=== PATIENT | female | born 1950 | race Hispanic/Latino ===

== ENCOUNTER → 2025-02-25 12:15 | Outpatient (REF) | payer MEDICARE, OTHER, SELFPAY | LOC: SDSPAT 12:15 | PROVIDERS: ATTENDING PHYSICIAN Obstetrics & Gynecology Gynecologic Oncology | DX: C54.1 Malignant neoplasm of endometrium (principal) | CPT/HCPCS: 36415; 86850; 86900; 86901 ==

== ENCOUNTER 2025-03-08 06:22 | Day surgery (SDC) | payer MEDICARE, OTHER, SELFPAY ==
[2025-02-25 13:27] VITALS: BMI 40.9
--- NOTE | 2025-03-07 06:45 | W.CON.GYNONC ---
Chief Complaint
-
Endometrial ca
History of Present Illness
74�year�old woman presenting for new diagnosis of endometrial cancer referred by Dr. Saldana. she presented to [facility]
with postmenopausal bleeding initially.
Ultrasound of pelvis October 24, 2024 at [facility] shows uterus 10 x 5 x 6 cm, endometrial mass 2.3 cm there
is no abnormal vascularity. Right and left ovaries are not seen.
Pap smear performed November 23, 2024 was cytology negative high risk HPV negative
This patient did undergo D&C, January 14, 2025 which reveals grade 1 endometrioid adenocarcinoma.there is loss of MLH1, PMS2
Past medical history significant for asthma, morbid obesity, depression, hypertension, prediabetes, gastroesophageal reflux as well
as arthritis, vitamin D insufficiency, memory changes.
Prior surgeries include tubal ligation
Family history significant for Alzheimer disease in mother, COPD in her sister, heart disease in her father
Allergies NKDA
patient is single, has 9 children
Social history denies tobacco use, denies alcohol abuse,from ID, lives with daughter and grand child
Medical History
Allergies
Allergies reflect when allergies were last updated in [facility].
No Known Allergies Allergy (Unverified 03/01/25 12:53)
Physical Exam
Physical Exam
External�normal�labia,�urethra,�anus. Vagina:�Normal�mucosa.� Cervix:�normal�appearance,�no�discharge.� Uterus:�normal�size.� Adnexa:�No�pelvic�mass.� RVE:�no�masses�or�nodularity
General:�Well�developed,�well�nourished�patient.�In�no�acute�distress. Neck:�No�thyromegaly.�No�cervical�lymphadenopathy. Lungs:�Clear�to�auscultation.�Good�air�movement�bilaterally. Cardiac:�Regular�rate.�Regular�rhythm.�No�murmurs�appreciated.
Right�Breast:�No�masses�or�dimpling.�No�nipple�discharge. Left�Breast:�No�masses�or�dimpling.�No�nipple�discharge. Abdomen:�Abdomen�is�soft.�Non�tender�to�palpation.�Non�distended. Extremities:�No�edema.
Hematologic/Lymphatic:�No�palpable�lymphadenopathy. Musculoskeletal:�Normal�range�of�motion.�Strength�and�Tone�are�normal.
Impression / Plan
-
I�spoke�with�the�patient�and�her�daughter�via�a�stereotyper apprentice�on�telephone.�I�explained�to�her�diagnosis�of�endometrial�cancer�etiology
and�correlation�to�obesity,�diabetes�hypertension,�we�discussed�presentation�and�management.�She�appears�to�have�low�grade
early�stage�endometrial�cancer�at�least�by�clinical�exam.�I�will�go�ahead�and�obtain�labs,�a�baseline�CT�chest�abdomen�pelvis.�She
appears�to�have�low�level�of�activity�and�I�recommended�that�she�increases�her�ambulation�to�approximately�30�minutes/day,�she
needs�to�see�her�primary�care�physician�for�a�preoperative�evaluation.�My�recommendation�is�to�proceed�with�surgery,�to�include
robotic�assisted�total�laparoscopic�hysterectomy�bilateral�salpingo�oophorectomy,�injection�of�cervix�with�ICG�dye,�mapping�at
identification�and�excision�of�sentinel�lymph�nodes.�Questions�were�answered.�Risk�of�surgery�including�infection,�bleeding,�injury�to
adjacent�organs,�DVT�pulmonary�embolus,�cardiovascular�complications�were�discussed�and�reviewed.�Surgery�will�be�scheduled�in about�3�to�4�weeks.�She�understands�that�she�will�see�me�2�weeks�after�surgery�to�discuss�postoperative�adjuvant�treatment
recommendation�if�necessary.�Surgery�will�be�scheduled�at[facility].
[2025-03-08] VITALS (20 sets, daily range): BP systolic 124–159; BP diastolic 76–98; BMI 40.9
[2025-03-08] MEDS: TYLENOL 1000 MG PO (11:25)
[2025-03-08] MEDS: NEURONTIN 300 MG PO (11:25)
[2025-03-08] MEDS: CELEBREX 200 MG PO (11:25)
[2025-03-08] MEDS: NORMOSOL-R/PLASMALYTE-A 1000 IV (11:26)
[2025-03-08] MEDS: HEPARIN 5000 UNITS SC (11:37)
[2025-03-08] MEDS: ZOFRAN 4 MG IV (16:05)
--- NOTE | 2025-03-08 16:08 | OR.RPT ---
Operative Report
Operative Report
Preoperative diagnosis: Endometrial cancer
Postoperative diagnosis: Same
Procedure:
Robotic assisted total laparoscopic hysterectomy, Bilateral salpingo-oophorectomy with pelvic washing
Injection of cervix with ICG dye, bilateral, for mapping and identification of sentinel lymph node
Robotic assisted laparoscopic bilateral pelvic lymphadenectomy including sentinel LN
Tap block
Surgeon: Monty Gaytan MD
Assist: Joseph Graham PA-C
EBL: 150 cc
Anesthesia: General Endotracheal intubation
Complication: None
Specimen: Uterus and cervix with left tube and ovary, pelvic washings, Right and left pelvic lymph nodes, left obturator sentinel lymph node
Findings: There was no implants of tumor involving pelvic peritoneum or upper abdomen right and left diaphragm right and left lobe of liver right and left paracolic gutter and omentum was unremarkable. Uterus was otherwise unremarkable, both
ovaries are benign appearing, retroperitoneal lymph nodes were without any enlargement. The visualized portions of small and large bowel were within normal limits
Procedure in detail: This patient was taken to the operating room and placed in supine position. General anesthesia was administered and she was intubated without any difficulty. Arms were wrapped with foam and laid along the patient's sides and
neck and shoulder were appropriately protected. She was placed in lithotomy position using yellowfin stirrups and prepped on the abdomen perineum and vagina. The patient was draped. Timeout procedure was carried out, she received 2 g of Ancef and
500 mg of Flagyl. Doherty catheter was placed under sterile conditions in the bladder. Using Dorsey retractor the cervix was identified and grasped on the anterior lip, cervical canal was gently dilated. ICG dye was injected in the cervix at
approximately 3 and 9:00 superficially at 5 mm and deep at 10 mm for a total of 4 cc. Uterine manipulator zipper repairer type with 3 cm ADRIÁN ring was placed in the endometrial cavity and vaginal cuff occluder was insufflated. Attention was turned
abdominally. Veress needle was inserted just below the left subcostal margin and pneumoperitoneum was created with CO2 gas up to pressure of 15 mmHg. 8 mm XI robotic port was inserted approximately 22 cm cephalad to symphysis pubis into the
peritoneal cavity and then under direct visualization 8 mm XI robotic ports were inserted right and left upper abdomen and right and left lateral abdomen. Tap block was performed using combination of 30 cc 0.2% ropivacaine admixed with 30 cc
sterile saline and 1 mg of Decadron injected equally under direct visualization 2 fingerbreadths below right and left subcostal margins as well as right and left lateral mid abdomen.
Following this survey of the abdomen was performed with the findings noted above. Patient was placed in 28 degree Trendelenburg and robotic system was docked. Washings were collected in the pelvis and submitted to pathology. Right and left
round ligaments were sealed and divided anterior and posterior leaves of the broad ligament resected open in both infundibulopelvic ligaments were isolated and a window was created between them and the ureters in the retroperitoneum. IP ligaments
were sealed 3 times and tubes and ovaries are left attached to uterus. we used the near infrared firefly system and examined the retroperitoneum after development of paravesical and pararectal spaces. The lymphatic channels drain into left
obturator spaces first, right sided lymphatics were very hard to follow due to excess adipose tissue in retroperitoneum.
Bladder flap was sharply developed and advanced below the cervicovaginal junction. Uterine arteries were sealed after they were skeletonized and divided circumferential incision was made over the ADRIÁN ring and uterosacral ligaments were transected
as part of this. Specimen of uterus and cervix with both tube and ovary was removed through the vagina.
Following this, I went ahead and performed bilateral pelvic lymphadenectomy removing the entire lymphatic tissue between bifurcation of common iliac vessels down to the level of the circumflex iliac artery and vein, additional lymph nodes along the
operative fossa was completely removed anterior to the obturator nerve. The medial boundary of the dissection was ureter and lateral boundary was genitofemoral nerve. We used sponge to establish there was good hemostasis. We did not injure ureter
and nerves blood vessels. Sponges as well as packets of lymph node including right and left pelvic lymph nodes were removed through the vagina. I then sprayed 4 ml Tiseel over the operative spaces.
The vaginal apex was closed with a 0 Vicryl suture ligature in a [id number] fashion involving uterosacral ligaments on both sides and then a V-Loc suture was used to close the vagina starting from right to the left and then back to the right
side in 2 layers. All operative sites were examined and excellent hemostasis was present the released the pneumoperitoneum and removed the ports and undocked the robotic system, we did not close any of the fascia involving incisions. We closed the
skin incisions with 4-0 Monocryl in a subcuticular fashion. Vaginal canal was examined and there was no evidence of lacerations or bleeding Doherty catheter was removed. Patient was awakened and returned back to recovery room stable awake and
extubated condition counts of labs instruments and needle was correct x 2. I was present and scrubbed for entire procedure as dictated above.
Disposition: To PACU, stable awake and extubated
--- NOTE | 2025-03-08 17:39 | CON.HOSP ---
Addendum entered and electronically signed by Parish Wu MD 03/08/25 18:39:
Seen and examined by me independently in collaboration with the nurse practitioner Sue.
Past medical history/social history/medication/allergies reviewed.
Lab data and imaging data reviewed.
Consult from Program/Music Director onc Dr Ward for post op hypoxia.
Jordanian speaking but family at bedside helping with translation and also her WATCH ELECTRICIAN speaks ukrainian and able to translate.
Postop patient sedated initially hands he was hypoxic. She is now much more awake but she has constant nausea and ongoing emesis and with that she is feeling dizzy and lightheaded.
Denies any shortness of breath or chest pain. No prior history of primary lung problems or heart failure. She is requiring 2 L of oxygen saturating well at 97%. No acute respiratory distress evident. Hard to examine. Morbid obesity. Not clear
if I am hearing Rales on the right lower lobe. With constant nausea and vomiting rule out any aspirational event. Chest x-ray requested. EKG shows a sinus rhythm with no acute ST-T changes. No JVD or lower extremity edema. No murmur noted.
In view of emesis will hold oral diet tonight. Okay for ice chips and sips of clears. Continue with antiemetics. Start on IV fluids.
Patient does have persistent postop nausea with some surgical abdominal pain. She apparently has a history of GERD per family. Treat symptomatically for now. Add PPI.
She has a history of hypertension of note continue with lisinopril adding tomorrow. Creatinine 0.08.
History of prediabetes mellitus type II. Check hemoglobin A1c and leave her on sliding scale insulin for now
Thanks for consultation. Will continue to follow with you.
Original Note:
Family Physician
-
Family Physician: ALLEY PRYOR
Chief Complaint
-
Grade 1 endometrioid adenocarcinoma
History of Present Illness
74-year-old female new diagnosis of endometrial cancer referred by Dr. Saldana when she presented to [facility] with postmenopausal bleeding. She had ultrasound of the pelvis October 24, 2024 at [facility] showing uterus 10
x 5 x 6 cm, endometrial mass 2.3 cm and right and left ovaries were not seen. She had Pap performed November 23, 2024 cytology negative , high risk HPV negative. She underwent a D&C January 14, 2025 which revealed grade 1 endometrioid adenocarcinoma.
Loss of MLH1, PMS2. Today she is status post robotic assisted total laparoscopic hysterectomy bilateral same pain go oophorectomy with pelvic washing
She is a Jordanian-speaking female only she is able to follow directions she denies any current pain she is very sedated requiring oxygen post fentanyl, Dilaudid and Versed however she will wake up and follow commands. She currently has not voided
yet postop we will monitor with bladder scans. Per nurse she took her lisinopril 30 mg yesterday. There is no history of hemoglobin A1c despite reported history of prediabetes we will add onto current labs just ordered.
Other past medical history includes asthma, depression, HTN, prediabetes, GERD, vitamin D deficiency, memory impairment, class III obesity�BMI 40.9, arthritis. Pt had vomiting while in PACU and is complaining Of dizziness with persistent nausea we
will make patient n.p.o. increase IV fluids and give prochlorperazine patient has as needed Zofran as needed we will decrease diet to n.p.o. except meds and ice chips
Medical History
Past Medical History
Past Medical History: Reports Other
Additional Past Medical History:
October 24, 2024 at [facility] showing uterus 10 x 5 x 6 cm, endometrial mass 2.3 cm and right and left ovaries were not see
Pap performed November 23, 2024 cytology negative , high risk HPV negative.
D&C January 14, 2025 which revealed Grade 1 Endometrioid Adenocarcinoma. Loss of MLH1, PMS2.
Memory impairment
Asthma
Depression
HTN
Prediabetes
GERD
Vitamin D deficiency
class III obesity�BMI 40.9
arthritis
Past Surgical History: Reports Other
Additional Past Surgical History:
Tubal ligation
Pap performed November 23, 2024 cytology negative , high risk HPV negative.
D&C January 14, 2025 which revealed Grade 1 Endometrioid Adenocarcinoma. Loss of MLH1, PMS2.
03/08/2025 status post robotic assisted total laparoscopic hysterectomy, bilateral salpingo-� oophrectomy with pelvic washing
Injection of cervix with ICG dye bilateral, for mapping and identification of sentinel lymph node
Robotic assisted laparoscopic bilateral pelvic lymphadenectomy including sentinel LN
Tap block
Social History
Tobacco: Non-smoker
Alcohol: None
Drug: None
Personal: Single
Living: With Family (Daughter and grandchild)
Employment: Retired
Family History
Family History: Other (Mother Alzheimer's, COPD Sister, CAD Father)
Allergies / Home Medications
Allergies reflects when Allergies were last updated in [employer].
Home Medications with original date entered in [employer]
Allergy/Medication List:
Allergies
Allergy/AdvReac Type Severity Reaction Status Date / Time
No Known Allergies Allergy Verified 03/08/25 11:03
Home Medications
acetaminophen 325 mg tablet (Tylenol) 650 mg PO Q6H PRN pain 03/01/25
lisinopril 30 mg tablet 30 mg PO DAILY 03/01/25
Review of Systems
-
History Source: Patient (Jordanian speaking female nurse speaks Jordanian), Physician (Record) and Other (Nurse at bedside)
A 12 point Review of Systems was completed except as noted: Yes
Constitutional: Denies Fever or Chills
EENT: Denies Sore Throat or Runny Nose
Respiratory: Denies Cough or Trouble Breathing
Cardiac: Denies Chest Pain, Palpitations or Syncope
Abdomen/GI: Denies Abdominal Pain, Nausea, Vomiting, Diarrhea, Constipated or Bloody Stools
: Denies Dysuria, Frequency, Flank Pain, Incontinence or Difficulty Voiding
Musculoskeletal: Denies Joint Pain or Edema
Skin: Denies Itching or Rash
Neurological: Denies Dizzy or Headache
Endocrine: Reports No Symptoms
Hematologic/Lymphatic: Reports No Symptoms
Psych: Reports Calm
Physical Exam
Vital Signs
Vital Signs
Temp Pulse Resp BP Pulse Ox
97.2 F 70 8 126/83 98
03/08/25 14:41 03/08/25 16:45 03/08/25 16:45 03/08/25 16:45 03/08/25 16:45
Physical Exam
General: Comfortable and Other (Patient seen in PACU is sedated on oxygen will open eyes to name called is able to answer review of systems in [place]ian her [place] language)
HEENT: Normocephalic, Oxygen (2 L nasal cannula infusing) and PERRLA
Respiratory: Clear; Negative Wheezes, Rales or Rhonchi
Cardiac: S1/S2 and Regular Rhythm; Negative Tachycardia, Murmur, Rub or Peripheral Edema
GI: Soft, Normal Bowel Sounds and Other (Multiple laparoscopic sites intact with Dermabond in place)
Rectal: Deferred by Provider
Musculoskeletal: No Clubbing, No Cyanosis and No Edema
Skin: Warm and Dry; Negative Rash
Neuro: No Motor Deficits, Sedated (Postsurgery) and Other (Patient seen in PACU is sedated on oxygen will open eyes to name called is able to answer review of systems in [place]ian her [place] language); Negative Slurred Speech, Facial Droop or Tremors
Psych: Calm
Data Reviewed
-
Lab Data: Labs Reviewed
Impression / Plan
-
Impression/plan:
Medical consultation
#Grade 1 endometrioid adenocarcinoma
#03/08/2025 status post robotic assisted total laparoscopic hysterectomy, bilateral salpingo-� oophrectomy with pelvic washing
Injection of cervix with ICG dye bilateral, for mapping and identification of sentinel lymph node
Robotic assisted laparoscopic bilateral pelvic lymphadenectomy including sentinel LN
Tap block
#Increased sedation post surgery status post fentanyl, Dilaudid, Versed requiring oxygen 2 L
Patient was given preop Ancef, gabapentin 300 mg, Celebrex 200 mg
-Being followed by Dr. Gaytan
- Pain control Tylenol alternating with Motrin
- Zofran Iv
-Iv prochlorperazine
-IV NSS 80 cc an hour x 1 L per attending
NPO except meds and ice chips due to dizziness vomiting
-Monitor voiding -must void before discharge will check with bladder scan
-Supplemental O2 until able to maintain sats greater than 92%, wean as tolerated
- Consult PT/OT/case management
Labs pending on admission
- Per Dr. Gaytan DC notes: May shower after 24 hours no tubs bath or swimming until approved by him
Clean laparoscopic incisions with warm soap and water
Continue home medication
No driving x 1 week, no lifting more than 10 pounds for 2 weeks
- Encourage ambulation walking 10 minutes 3-4 times a day
- Call the office to make an appointment in 2 weeks
#Memory impairment? Reported per history
Patient is Jordanian-speaking only she is able to follow commands and answer to name however I did not use [employer] to test orientation x 3 due to sedation and patient is in recovery room
#HTN
BP 126/83
- Lisinopril 30 mg daily
#Asthma-no acute exacerbation
#Depression hx
No reported meds
Prediabetes
Will check HgbA1c
#GERD
Will add IV Protonix now and daily
Other PMH:
Vitamin D deficiency-no reported meds
Arthritis no reported meds
#class III obesity�BMI 40.9
Affects all aspects of care
Weight loss recommended
DVT prophylaxis
Subcu Lovenox
Full code
[2025-03-08 17:47] LABS: % Basophils 0.2 % (0-2); % Eosinophils 0.1 % (0-6); % Immature Granulocytes 0.4 % (0-0.5); % Lymphocytes 7.2 % (20.5-51.1); % Neutrophils 91.1 % (42.2-75.2); Absolute Immature Granulocytes 0.1 10^3/uL (0-0.05); Absolute Lymphocytes 0.8 10^3/uL (1.2-3.4); Absolute Monocytes 0.1 10^3/uL (0.1-0.6); Absolute Neutrophils 10.4 10^3/uL (1.4-6.5); Hematocrit 35.9 % (37.0-47.0); Hemoglobin 11.7 g/dL (12.0-16.0); Mean Corp Hgb Conc. 32.6 g/dL (33.0-37.0); Mean Corpuscular Hgb 30.2 pg (27.0-31.0); Mean Corpuscular Volume 92.5 fL (81.0-99.0); Nucleated Red Blood Cells % 0 %; Platelet Count 157 10^3/uL (130-400); Red Blood Cell Count 3.88 10^6/uL (4.20-5.40); Red Cell Dist. Width 14.6 % (11.5-14.5); White Blood Cell Count 11.4 10^3/uL (4.8-10.8)
[2025-03-08 17:59] LABS: Blood Urea Nitrogen 15 mg/dl (7-17); Calcium 8.3 mg/dl (8.4-10.2); Carbon Dioxide 26 mmol/L (22-30); Chloride 110 mmol/L (98-107); Estimated Creatinine Clearance 70 ml/min; Glucose 175 mg/dl (70-99); Potassium 4.4 mmol/L (3.5-5.1); Sodium 143 mmol/L (135-145); eGFR > 60.00
[2025-03-08] MEDS: COMPAZINE 5 MG IV ×2 (18:18→23:10)
[2025-03-08] MEDS: PROTONIX IV 40 MG IV (19:10)
--- NOTE | 2025-03-08 19:32 | W.PN.UPDATE ---
Update Note
Progress Note Update
Received Page text from [facility] radiology regarding chest x-ray showing prominence in the region of the ascending aorta probably due to uncoiling of the aorta and patient positioning however aortic dissection and aneurysm cannot be
excluded recommend CT chest with IV contrast
- Order placed in computer
- Nurse notified
[2025-03-08] MEDS: NSS 1000 IV (22:34)
[2025-03-08] MEDS: LOVENOX 40 MG SC (22:34)
[2025-03-08] MEDS: MOTRIN PO (22:35)
[2025-03-08] MEDS: TYLENOL PO (22:35)
[2025-03-08] MEDS: MOTRIN 600 MG PO (23:09)
[2025-03-08] MEDS: TYLENOL 650 MG PO (23:09)
[2025-03-09 03:10] VITALS: BP 120/82
[2025-03-09] MEDS: TYLENOL 650 MG PO ×2 (06:00→12:16)
[2025-03-09] MEDS: MOTRIN 600 MG PO ×2 (06:00→12:15)
[2025-03-09 07:26] LABS: % Basophils 0.1 % (0-2); % Immature Granulocytes 0.5 % (0-0.5); % Lymphocytes 9.4 % (20.5-51.1); % Monocytes 1.7 % (1.7-9.3); % Neutrophils 88.3 % (42.2-75.2); Absolute Immature Granulocytes 0.1 10^3/uL (0-0.05); Absolute Lymphocytes 0.9 10^3/uL (1.2-3.4); Absolute Monocytes 0.2 10^3/uL (0.1-0.6); Absolute Neutrophils 8.5 10^3/uL (1.4-6.5); Hematocrit 35.3 % (37.0-47.0); Hemoglobin 11.5 g/dL (12.0-16.0); Mean Corp Hgb Conc. 32.6 g/dL (33.0-37.0); Mean Corpuscular Hgb 29.7 pg (27.0-31.0); Mean Corpuscular Volume 91.2 fL (81.0-99.0); Mean Platelet Volume 12.5 fL (7.4-10.4); Nucleated Red Blood Cells % 0 %; Platelet Count 166 10^3/uL (130-400); Red Blood Cell Count 3.87 10^6/uL (4.20-5.40); Red Cell Dist. Width 14.5 % (11.5-14.5); White Blood Cell Count 9.6 10^3/uL (4.8-10.8)
[2025-03-09 07:40] VITALS: BP 136/87
[2025-03-09 07:42] LABS: ALT (SGPT) 12 U/L (0-35); AST (SGOT) 13 U/L (14-36); Albumin 3.7 g/dl (3.5-5.0); Alkaline Phosphatase 76 U/L (38-126); Blood Urea Nitrogen 16 mg/dl (7-17); Calcium 8.5 mg/dl (8.4-10.2); Carbon Dioxide 23 mmol/L (22-30); Chloride 110 mmol/L (98-107); Estimated Creatinine Clearance 80 ml/min; Glucose 159 mg/dl (70-99); Potassium 5.1 mmol/L (3.5-5.1); Sodium 141 mmol/L (135-145); Total Bilirubin 0.5 mg/dl (0.2-1.3); eGFR > 60.00
--- NOTE | 2025-03-09 08:47 | W.PN.GYNONC ---
Today's Communication
-
possible dc later today
Impression / Plan
-
Advance to regular diet
Ambulate OOB as much as possible, PT eval
labs reviewed and ok
hopefully can discharge this pm
I discussed CT chest with hospitalist who recommend follow up with vascular surgery for imaging follow up, no intervention needed
she has emphysema
also had elevated blood sugars, suspect she may have DM, HgA1C pending, will await input from hospitalist team
Subjective / Interval History
-
POD1 Robotic TLH BSO Pelvic Lymph node dissection for G1 endometrial ca
stayed overnight due to hypoxia and slow awakening
she feels no pain, voiding ok, reports being hungry, denies CP or dyspnea
Objective Data
-
Lab Results:
03/09/25 06:13
03/09/25 06:13
[facility]
[address] [place] [address]
[phone]
Patient Name: JOSE ENRIQUE THEODORE
: 1950
Unit Number: [id number]
Age/Sex: 74/F
Patient
Location: [address] [place] [address]
Order Provider: Sue Blackburn
Exam Service Date: 03/08/25

Diagnostic Imaging Report
SignedOrder #:[id number]
Exams: CT Chest Angio W/wo Iv Contras
SCANNING PARAMETERS: CT of the chest pre and post-intravenous contrast material was obtained. Automated exposure control was used.
INDICATION: Prominent aorta on chest x-ray
COMPARISON EXAMINATION: Chest x-ray 03/08/2025
FINDINGS:
Pre-IV contrast imaging shows no evidence of aortic intramural hematoma.
Post-IV contrast imaging shows:
There is no gross central pulmonary embolus. There is no evidence of aortic dissection.
There is ascending aortic ectasia measuring 4.4 cm at the level of the pulmonary trunk. The descending thoracic aorta measures 3.2 cm at the same level.
There are no abnormal pleural or parenchymal pulmonary masses.
There is no significant parenchymal airspace disease.
There is no pleural effusion.
There are no abnormal mediastinal masses.
There is no hilar lymphadenopathy.
There is no mediastinal lymphadenopathy.
There is no axillary lymphadenopathy.
There is moderate cystic change throughout the lungs consistent with emphysematous disease.
There is mild bibasilar consolidation probably atelectasis.
The osseous structures show moderate degenerative disease.
IMPRESSION:
No acute disease of the chest. No evidence of aortic dissection.
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 This accounts for the recent chest x-ray finding.
Mild bibasilar consolidation probably atelectasis.
Moderate emphysematous disease.
Electronically signed by Daniela Baptiste DO, 03/08/2025 9:05 PM
[employer] Dose Report: Up-to-date CT equipment and radiation dose reduction techniques were employed. CTDIvol: 2.4 - 28.8 mGy. DLP: 924 mGy-cm.
Dictated By: Daniela Baptiste DO.
Dictated Date & Time: 03/08/252057
Physical Exam
Vital Signs / I&O
Vitals
Temp Pulse Resp BP Pulse Ox
98.9 F 78 18 136/87 99
03/09/25 07:40 03/09/25 07:40 03/09/25 07:40 03/09/25 07:40 03/09/25 07:40
I&O
03/07/25 03/08/25 03/09/25 03/10/25
06:59 06:59 06:59 06:59
Intake Total 1080 / 1080
Output Total 500 / 500
Balance 580 / 580
Physical Exam
General: Well Developed and No Apparent Distress
HEENT: Normocephalic
Respiratory: Clear and Non Labored Respirations
Cardiac: S1/S2 and Regular Rhythm
GI: Soft, Non Tender and Non Distended
Skin: Warm and Dry
Neuro: AO x 3 and No Motor Deficits
Psych: Calm
[2025-03-09 09:05] LABS: Glycohemoglobin (HgbA1c) 6.2 % (4.0-5.6)
[2025-03-09] MEDS: NSS (PRESERVATIVE FREE) 10 ML IV (09:38)
[2025-03-09] MEDS: PROTONIX IV 40 MG IV (09:39)
[2025-03-09] MEDS: ZESTRIL 30 MG PO (09:39)
[2025-03-09 10:00] VITALS: BMI 40.9
[2025-03-09 11:15] VITALS: BP 118/89
[2025-03-09 12:23] VITALS: BP 109/81; PULSE 92
--- NOTE | 2025-03-09 12:48 | W.PN.HOSP.TC ---
Addendum entered and electronically signed by Parish Wu MD 03/09/25 13:01:
Correction HbA1c is 6.2 not 6.5 which i thought - it is pre diabetes range . With her morbid obestiy and prediabetes i still feel she could benefit GIP/GLP-1 agonist.
DW Grand daughter about this and Aortic ectasia and follow up need.
Original Note:
Today's Communication/Plan
-
dc
Assessment / Plan
Assessment / Plan
#Grade 1 endometrioid adenocarcinoma
#03/08/2025 status post robotic assisted total laparoscopic hysterectomy, bilateral salpingo-� oophrectomy with pelvic washing
Injection of cervix with ICG dye bilateral, for mapping and identification of sentinel lymph node
Robotic assisted laparoscopic bilateral pelvic lymphadenectomy including sentinel LN
Tap block
Tolerating diet and pain control ok
Dispo per surgery
# Postop hypoxia in PACU. Suspect sedation related. CT of the chest shows no evidence of PE nor dissection. No focal normality. Emphysema noted. Today patient without any hypoxia. Pulse ox is also fine. No further workup indicated. With the
finding of emphysema I would refer her to pulmonary for routine outpatient care fror lung function tests.
# Ascending aorta ectasia-at 4.4 cm. Would warrant a routine outpatient annual surveillance. Referred to vascular surgery as outpatient.
#HTN
- Lisinopril 30 mg daily
#Asthma-no acute exacerbation
#Depression hx
No reported meds
Prediabetes
HgbA1c 6.2 in the diabetes range .
I would favor diet control/ wt control - she is s good candidate for GLP-1 /GIP agonist - follow with PCP .
#GERD
Protonix as OP
Other PMH:
Vitamin D deficiency-no reported meds
Arthritis no reported meds
#class III obesity�BMI 40.9
Affects all aspects of care
Weight loss recommended
DVT prophylaxis
Subcu Lovenox
Full code
Medically stable for DC home
DW Dr. Gaytan
Anticipated Discharge: Today
Subjective/Interval History
-
Date of Service: March 09, 2025
Tolerating diet without issues
Not SOB and off of O2
Objective Data
-
Labs:
Laboratory Results
03/09/25
06:13
WBC 9.6
Hgb 11.5 L
Hct 35.3 L
Plt Count 166
Sodium 141
Potassium 5.1
Chloride 110 H
Carbon Dioxide 23
BUN 16
Creatinine 0.7
Glucose 159 H
Calcium 8.5
Total Bilirubin 0.5
AST 13 L
ALT 12
Alkaline Phosphatase 76
Vital Signs:
Vital Signs
Temp Pulse Resp BP Pulse Ox
98.9 F 78 18 136/87 99
03/09/25 07:40 03/09/25 09:39 03/09/25 07:40 03/09/25 09:39 03/09/25 07:40
I&O
03/08/25 03/09/25 03/10/25
06:59 06:59 06:59
Intake Total 1080 / 1080
Output Total 500 / 500
Balance 580 / 580
Review of Systems
-
Unable to obtain full review of systems at this time due to: Language Barrier
Physical Exam
-
General: Comfortable
Respiratory: Clear to Auscultation and Non Labored Respirations; Negative Accessory Resp Muscle Use
Cardiac: Regular Rhythm and S1/S2
GI: Soft and Nontender
Neuro: Awake, Alert and Oriented
Psych: Calm
Data Reviewed
-
Labs: Labs Reviewed by me
--- NOTE | 2025-03-09 13:26 | CM ---
CM following re: discharge planning.
Reviewed pt's chart, met with pt and spoke to pt's granddaughter Roseanna over the phone.
Pt is a 74 year old Hebrew speaking female,admitted with SDC status and primary dx of POD1 Robotic TLH BSO Pelvic Lymph node dissection for G1 endometrial ca.
Per granddaughter pt was born and grew up in [place], lives with daughter 2SH, 2 steps to enter, has 8 supportive living children, one son . Per granddaughter pt ambulates with a cane, has a walker and a cane. Per granddaughter, pt is
enrolled in PDA waiver community based services with [employer], receives 14 hours of caregiver services daily from 7:00 a.m till 21:00 and granddaughter is a caregiver. Granddaughter stated she is coming to transport her grandmother home.
PT and OT evaluations noted - home PT/OT recommended. Pt's granddaughter stated that pt did not have VN services in the past, agrees to make a referral to [facility]. A referral to [facility] made.
Please fax discharge instructions to [facility] at [phone]
PCP: Gail June
Pharmacy: [facility].
D/C plan: home with [facility], resumptions of caregiver services and family support. Granddaughter to transport.
== END 2025-03-09 14:29 | disposition home or self-care (01) ==
LOC: SDS 06:22
PROVIDERS: ATTENDING PHYSICIAN Obstetrics & Gynecology Gynecologic Oncology; CONSULT PHYSICIAN Internal Medicine
DX: C54.1 Malignant neoplasm of endometrium (principal); N80.03 Adenomyosis of the uterus; D27.1 Benign neoplasm of left ovary; D27.0 Benign neoplasm of right ovary; R09.02 Hypoxemia; E66.813 Obesity, class 3; Z68.41 Body mass index [BMI] 40.0-44.9, adult; J43.9 Emphysema, unspecified; R73.03 Prediabetes; I77.810 Thoracic aortic ectasia
CPT/HCPCS: 38571; 58571; 38900; 88307; 88309; 71045; 71275; 80048; 80053; 83036; 85025; 86900; 86901; 88112; 88342; 93005; 97116; 97163; C9250; Q9967